=== PATIENT | female | born 1990 | race Caucasian/White ===

== ENCOUNTER 2023-11-15 14:03 | Outpatient (CLI) | payer OTHER, SELFPAY ==
--- NOTE | ~2023-11-15 | MR_ITS ---
EXAMINATION: MR IAC wo/w con DATE: 11/15/2023 15:04 INDICATION: Right-sided hearing loss. Benign neoplasm of cranial nerves. TECHNIQUE: Magnetic resonance imaging (MRI) of the brain, brainstem, and internal auditory canals was performed without and with 12 mL MultiHance intravenous contrast. COMPARISON: Brain MRI 11/22/2018 FINDINGS: The cerebellar tonsils extend 7 mm inferior to foramen magnum, consistent with Chiari I mal formation. There is no intracranial hemorrhage, acute infarction, or abnormal intracranial mass lesio n. The ventricles are normal in size. The internal auditory canals, inner ears, tympanic cavities, an d mastoid air cells are normal. The orbits are normal. The paranasal sinuses are clear. IMPRESSION: 1. Chiari I malformation. Reviewed, dictated and finalized at location A. IMPRESSION: 1. Chiari I malformation.
== END 2023-11-15 14:04 ==
PROVIDERS: PCP Otolaryngology; Visit Provider Otolaryngology
DX: D33.3 Benign neoplasm of cranial nerves (principal); H90.41 Sensorineural hearing loss, unilateral, right ear, with unrestricted hearing on the contralateral side; G93.5 Compression of brain
CPT/HCPCS: 70553; A9577